=== PATIENT | female | born 1960 | race Caucasian/White ===

== ENCOUNTER 2017-02-07 20:36 | Emergency (ER) | payer OTHER ==
[~2017-02-07] VITALS: Ht 160 cm; Wt 67.0 kg
[~2017-02-07 20:36] MED LIST: CEFD250S PO; HYDR12.56 PO; SERT100 PO
[2017-02-07 21:05] VITALS: BP 155/83; PULSE 77; RESP 18; TEMP 99.1; O2SAT 98
[2017-02-07 21:16] VITALS: BP 155/83; PULSE 86; RESP 18; TEMP 98.6; O2SAT 95
--- NOTE | 2017-02-07 21:18 | PD ---
HPI Chief Complaint: Psychiatric Symptoms Time Seen by Provider: 21:17 Travel History International Travel<30 days: No Contact w/Intl Traveler<30days: No History of Present Illness HPI The patient arrives by police department as a Carter act. The patient has been reported by her mother to the police. Evidently she is drinking wine and nights , tonight 6 classes. This concerned the mother such that she brought a friend to visit the patient and together they evidently berated the patient. She became increasingly frustrated asking the mother and friend to leave however they did not. At one point the patient threatened her mother and friend and for that reason the police department was activated. At the time my examination the patient is cooperative and competent for a meaningful interview. 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 She denies any past diagnosis of psychiatric disease. She has never tried to hurt herself before. She denies any drug abuse. She has no medical complaint now. She reports she has several and good friends to call if necessary for support. Location neuropsychiatric. Severity moderate. PFSH Past Medical History Anxiety: Yes Hypertension: Yes Past Surgical History Tonsillectomy: Yes Other Surgery: Yes (BREAST IMPLANTS) Social History Alcohol Use: Yes (OCC) Tobacco Use: No Substance Use: No Allergies-Medications (Allergen,Severity, Reaction): Coded Allergies: penicillin G (Unverified Allergy, Severe, Anaphylaxis, 02/07/17) sulfamethoxazole (Unverified Allergy, Severe, Anaphylaxis, 02/07/17) trimethoprim (Unverified Allergy, Severe, Anaphylaxis, 02/07/17) Reported Meds & Prescriptions Reported Meds & Active Scripts Active Omnicef 250/5 (Cefdinir) Judith 6 Ml PO BID 10 Days Reported Zoloft (Sertraline HCl) 100 Mg Tab 100 Mg PO DAILY Hctz (Hydrochlorothiazide) 12.5 Mg Cap 12.5 Mg PO DAILY Review of Systems Except as stated in HPI: all other systems reviewed are Neg Physical Exam Narrative GENERAL:-year-old female pleasant well-nourished well-developed mildly anxious SKIN: Focused skin assessment warm/dry. HEAD: Atraumatic. Normocephalic. EYES: Pupils equal and round. No scleral icterus. No injection or drainage. ENT: No nasal bleeding or discharge. Mucous membranes pink and moist. NECK: Trachea midline. No JVD. CARDIOVASCULAR: Regular rate and rhythm. No murmur appreciated. RESPIRATORY: No accessory muscle use. Clear to auscultation. Breath sounds equal bilaterally. GASTROINTESTINAL: Abdomen soft, non-tender, nondistended. Hepatic and splenic margins not palpable. MUSCULOSKELETAL: No obvious deformities. No clubbing. No cyanosis. No edema. NEUROLOGICAL: Awake and alert. No obvious cranial nerve deficits. Motor grossly within normal limits. Normal speech. PSYCHIATRIC: Denies suicidal or homicidal ideation. Mildly anxious although appropriate. Data Data Last Documented VS Vital Signs Date Time Temp Pulse Resp B/P Pulse Ox O2 Delivery O2 Flow Rate FiO2 02/07/17 21:16 98.6 86 18 155/83 95 02/07/17 21:05 Room Air Vital signs reviewed MDM Medical Decision Making Medical Screen Exam Complete: Yes Emergency Medical Condition: Yes Medical Record Reviewed: Yes Differential Diagnosis Altered mental status/psychosis due to infection/environmental exposure/ metabolic abnormality, polypharmacy, alcohol abuse/intoxication, illicit or prescribed drug abuse, malingering/secondary gain, non-organic psychiatric disease Narrative Course I will lift this Carter Act as it is inappropriate and unnecessary. The patient is not a harm to herself or others she has a good social support network Diagnosis Primary Impression: Alcohol intoxication Qualified Code: F10.920 - Alcoholic intoxication without complication Referrals: Primary Care Physician 2 days Additional Instructions: You have a choice when it comes to health care, and we are glad that you chose [facility]. Hopefully, we have met your expectations on today's visit. You are welcome to return to [facility] at any time, as we are committed to meeting the health care needs of our community. Med/Other Pt SpecificInfo: No Change to Meds Disposition: 01 DISCHARGE HOME Condition: Ward Hernandez MD Feb 07, 2017 21:18
[2017-02-08] MEDS ORDERED: RANI150T PO (16:09)
[2017-02-08] MEDS ORDERED: XANA2TAB2 PO (16:09)
[2017-02-08] MEDS ORDERED: ZOLO100T PO (16:09)
== END 2017-02-07 22:21 | disposition home or self-care (01) ==
LOC: NEPD 20:36
DX: F10.120 Alcohol abuse with intoxication, uncomplicated (principal); I10 Essential (primary) hypertension
CPT/HCPCS: 99283

== ENCOUNTER 2017-02-08 15:16 | Inpatient (IN) | payer OTHER ==
[~2017-02-08] VITALS: Ht 160 cm; Wt 63.5 kg
--- NOTE | 2017-02-08 15:40 | PD ---
HPI Chief Complaint: overdose Time Seen by Provider: 15:37 Travel History International Travel<30 days: No Contact w/Intl Traveler<30days: No History of Present Illness HPI 56-year-old female presents to the emergency department via EMS for evaluation of suicide attempt, overdose. The patient apparently took 7 pills of 0.5 mg Xanax at 7 PM last night. She also had multiple vodka drinks. The patient does not remember coming to the emergency department. She does remember taking the pills and trying to kill herself. When asked why, she states "too many things". She apparently left her sinus suicide letter. The patient reports history of hypertension, depression. The patient denies any medical complaints at this time. She reports feeling sleepy. She answers all my questions appropriately. PFSH Past Medical History Anxiety: Yes GERD: Yes Hypertension: Yes Past Surgical History Tonsillectomy: Yes Other Surgery: Yes (BREAST IMPLANTS) Social History Alcohol Use: Yes (OCC) Tobacco Use: No Substance Use: No Allergies-Medications (Allergen,Severity, Reaction): Coded Allergies: penicillin G (Unverified Allergy, Severe, Anaphylaxis, 02/08/17) sulfamethoxazole (Unverified Allergy, Severe, Anaphylaxis, 02/08/17) trimethoprim (Unverified Allergy, Severe, Anaphylaxis, 02/08/17) Reported Meds & Prescriptions Reported Meds & Active Scripts Active Reported Ranitidine (Ranitidine HCl) 150 Mg Tab 150 Mg PO DAILY Xanax (Alprazolam) 2 Mg Tab 2 Mg PO Q8H PRN Zoloft (Sertraline HCl) 100 Mg Tab 100 Mg PO DAILY Review of Systems Except as stated in HPI: all other systems reviewed are Neg Physical Exam Narrative GENERAL: Well-nourished, well-developed female patient. SKIN: Focused skin assessment warm/dry. HEAD: Normocephalic. Atraumatic. EYES: No scleral icterus. No injection or drainage. NECK: Supple, trachea midline. No JVD or lymphadenopathy. CARDIOVASCULAR: Regular rate and rhythm without murmurs, gallops, or rubs. RESPIRATORY: Breath sounds equal bilaterally. No accessory muscle use. Lungs sounds are clear to auscultation GASTROINTESTINAL: Abdomen soft, non-tender, nondistended. MUSCULOSKELETAL: No cyanosis, or edema. PSYCHIATRIC: No delusional thought processes. No hallucinations. Data Data Last Documented VS Vital Signs Date Time Temp Pulse Resp B/P Pulse Ox O2 Delivery O2 Flow Rate FiO2 02/08/17 20:02 98.3 71 16 101/63 97 Room Air 02/08/17 18:00 3 Orders Complete Blood Count With Diff (02/08/17 15:35) Comprehensive Metabolic Panel (02/08/17 15:35) Electrocardiogram (02/08/17 15:35) Psych Screen (02/08/17 15:35) Drug Screen, Random Urine (02/08/17 15:35) Alcohol (Ethanol) (02/08/17 15:35) Salicylates (Aspirin) (02/08/17 15:35) Tylenol (Acetaminophen) (02/08/17 15:35) Urinalysis - C+S If Indicated (02/08/17 15:36) Labs Laboratory Tests Test 02/08/17 02/08/17 16:20 16:40 White Blood Count 4.7 TH/MM3 Red Blood Count 3.91 MIL/MM3 Hemoglobin 12.9 GM/DL Hematocrit 37.7 % Mean Corpuscular Volume 96.4 FL Mean Corpuscular Hemoglobin 33.1 PG Mean Corpuscular Hemoglobin 34.3 % Concent Red Cell Distribution Width 12.7 % Platelet Count 186 TH/MM3 Mean Platelet Volume 6.7 FL Neutrophils (%) (Auto) 45.3 % Lymphocytes (%) (Auto) 47.8 % Monocytes (%) (Auto) 5.4 % Eosinophils (%) (Auto) 0.9 % Basophils (%) (Auto) 0.6 % Neutrophils # (Auto) 2.1 TH/MM3 Lymphocytes # (Auto) 2.2 TH/MM3 Monocytes # (Auto) 0.3 TH/MM3 Eosinophils # (Auto) 0.0 TH/MM3 Basophils # (Auto) 0.0 TH/MM3 CBC Comment DIFF FINAL Differential Comment Sodium Level 143 MEQ/L Potassium Level 3.8 MEQ/L Chloride Level 105 MEQ/L Carbon Dioxide Level 26.4 MEQ/L Anion Gap 12 MEQ/L Blood Urea Nitrogen 8 MG/DL Creatinine 0.62 MG/DL Estimat Glomerular Filtration 99 ML/MIN Rate Random Glucose 75 MG/DL Calcium Level 8.1 MG/DL Total Bilirubin 0.5 MG/DL Aspartate Amino Transf 54 U/L (AST/SGOT) Alanine Aminotransferase 36 U/L (ALT/SGPT) Alkaline Phosphatase 46 U/L Total Protein 7.2 GM/DL Albumin 3.8 GM/DL Salicylates Level LESS THAN 1.7 MG/DL Acetaminophen Level LESS THAN 2.0 MCG/ML Ethyl Alcohol Level 352 MG/DL Urine Color LIGHT-YELLOW Urine Turbidity CLEAR Urine pH 5.5 Urine Specific [place] 1.010 Urine Protein 100 mg/dL Urine Glucose (UA) NEG mg/dL Urine Ketones NEG mg/dL Urine Occult Blood NEG Urine Nitrite NEG Urine Bilirubin NEG Urine Urobilinogen LESS THAN 2.0 MG/DL Urine Leukocyte Esterase LARGE Urine RBC 1 /hpf Urine WBC 3 /hpf Urine Squamous Epithelial 2 /hpf Cells Urine Hyaline Casts 3 /lpf Urine Mucus FEW /lpf Microscopic Urinalysis Comment CULT NOT INDICATED Urine Opiates Screen NEG Urine Barbiturates Screen NEG Urine Amphetamines Screen NEG Urine Benzodiazepines Screen POS Urine Cocaine Screen NEG Urine Cannabinoids Screen NEG MDM Medical Decision Making Medical Screen Exam Complete: Yes Emergency Medical Condition: Yes Medical Record Reviewed: Yes Differential Diagnosis Suicidal ideation versus depression versus alcohol intoxication versus substance abuse versus bipolar disorder Narrative Course 56-year-old female presents to the emergency department via EMS for psychiatric evaluation. She states that she attempted to kill herself by overdosing on Xanax and drinking vodka. Patient is easily awakened on my exam. She answers all questions appropriate. She does not remember coming to the hospital. EKG, CBC, CMP, UA, urine drug screen, alcohol level, salicylate level, acetaminophen level are ordered and pending. Workup is initiated in the ambulance. Patient will be transferred to medical pod when bed becomes available. Lilian Rodriguez Feb 08, 2017 15:40
[2017-02-08 16:00] VITALS: BP 109/65; PULSE 75; PULSE 78; RESP 18; TEMP 97.4; O2SAT 92; O2SAT 99
[2017-02-08] MEDS ORDERED: XANA2TAB2 PO (16:09)
[2017-02-08] MEDS ORDERED: ZOLO100T PO (16:09)
[2017-02-08] MEDS ORDERED: RANI150T PO (16:09)
[2017-02-08 17:00] VITALS: BP 104/63; PULSE 78; RESP 14; O2SAT 97
[2017-02-08 17:22] LABS: ANION GAP 12 MEQ/L (5-15); AST (GOT) 54 U/L (15-37); BICARBONATE 26.4 MEQ/L (21.0-32.0); BLOOD UREA NITROGEN 8 MG/DL (7-18); CHLORIDE 105 MEQ/L (98-107); GLOMERULAR FILTRATION RATE 99 ML/MIN (>89); POTASSIUM 3.8 MEQ/L (3.5-5.1); SODIUM (NA) 143 MEQ/L (136-145)
[2017-02-08 17:22] LABS: BLOOD, URINE NEG (NEG); COMMENT (UR) CULT NOT INDICATED; CULTURE IF INDICATED CULT NOT INDICATED; GLUCOSE,URINE NEG (NEG); HYALINE CAST, URINE 3 /lpf (RARE); KETONE, URINE NEG (NEG); MUCUS URINE FEW /lpf (OCC); NITRITE,URINE NEG (NEG); PH, URINE 5.5 (5.0-8.5); SQUAMOUS EPITHELIAL CELL URINE 2 /hpf (0-5); URINE COLOR LIGHT-YELLOW (YELLW/STRAW)
[2017-02-08 17:24] LABS: ALKALINE PHOSPHATASE 46 U/L (45-117); ALT (GPT) 36 U/L (10-53); TOTAL BILIRUBIN ADULT 0.5 MG/DL (0.2-1.0)
[2017-02-08 17:29] LABS: AUTOMATED NEUTROPHIL # 2.1 TH/MM3 (1.8-7.7); BASOPHIL % 0.6 % (0.0-2.0); EOSINOPHIL % 0.9 % (0.0-4.0); HEMATOCRIT 37.7 % (35.0-46.0); HEMO FLAGS DIFF FINAL; LYMPH % 47.8 % (9.0-44.0); LYMPHOCYTE # 2.2 TH/MM3 (1.0-4.8); MEAN CELL VOLUME 96.4 FL (80.0-100.0); MEAN CORPUSCULAR HEMOGLOBIN 33.1 PG (27.0-34.0); MEAN CORPUSCULAR HGB CONC 34.3 % (32.0-36.0); MONO % 5.4 % (0.0-8.0); NEUT % 45.3 % (16.0-70.0); PLATELET COUNT 186 TH/MM3 (150-450); RED BLOOD COUNT 3.91 MIL/MM3 (4.00-5.30); RED CELL DISTRIBUTION WIDTH 12.7 % (11.6-17.2); WHITE BLOOD COUNT 4.7 TH/MM3 (4.0-11.0)
[2017-02-08 17:39] LABS: ACETAMINOPHEN LESS THAN 2.0 MCG/ML (10.0-30.0)
[2017-02-08 18:00] VITALS: BP 99/60; PULSE 88; RESP 14; O2SAT 99
--- NOTE | 2017-02-08 18:00 | PD ---
Data Data Last Documented VS Vital Signs Date Time Temp Pulse Resp B/P Pulse Ox O2 Delivery O2 Flow Rate FiO2 02/08/17 18:00 88 14 99/60 99 Nasal Cannula 3 02/08/17 16:00 97.4 Orders Complete Blood Count With Diff (02/08/17 15:35) Comprehensive Metabolic Panel (02/08/17 15:35) Electrocardiogram (02/08/17 15:35) Psych Screen (02/08/17 15:35) Drug Screen, Random Urine (02/08/17 15:35) Alcohol (Ethanol) (02/08/17 15:35) Salicylates (Aspirin) (02/08/17 15:35) Tylenol (Acetaminophen) (02/08/17 15:35) Urinalysis - C+S If Indicated (02/08/17 15:36) Labs Laboratory Tests Test 02/08/17 02/08/17 16:20 16:40 White Blood Count 4.7 TH/MM3 Red Blood Count 3.91 MIL/MM3 Hemoglobin 12.9 GM/DL Hematocrit 37.7 % Mean Corpuscular Volume 96.4 FL Mean Corpuscular Hemoglobin 33.1 PG Mean Corpuscular Hemoglobin 34.3 % Concent Red Cell Distribution Width 12.7 % Platelet Count 186 TH/MM3 Mean Platelet Volume 6.7 FL Neutrophils (%) (Auto) 45.3 % Lymphocytes (%) (Auto) 47.8 % Monocytes (%) (Auto) 5.4 % Eosinophils (%) (Auto) 0.9 % Basophils (%) (Auto) 0.6 % Neutrophils # (Auto) 2.1 TH/MM3 Lymphocytes # (Auto) 2.2 TH/MM3 Monocytes # (Auto) 0.3 TH/MM3 Eosinophils # (Auto) 0.0 TH/MM3 Basophils # (Auto) 0.0 TH/MM3 CBC Comment DIFF FINAL Differential Comment Sodium Level 143 MEQ/L Potassium Level 3.8 MEQ/L Chloride Level 105 MEQ/L Carbon Dioxide Level 26.4 MEQ/L Anion Gap 12 MEQ/L Blood Urea Nitrogen 8 MG/DL Creatinine 0.62 MG/DL Estimat Glomerular Filtration 99 ML/MIN Rate Random Glucose 75 MG/DL Calcium Level 8.1 MG/DL Total Bilirubin 0.5 MG/DL Aspartate Amino Transf 54 U/L (AST/SGOT) Alanine Aminotransferase 36 U/L (ALT/SGPT) Alkaline Phosphatase 46 U/L Total Protein 7.2 GM/DL Albumin 3.8 GM/DL Salicylates Level LESS THAN 1.7 MG/DL Acetaminophen Level LESS THAN 2.0 MCG/ML Ethyl Alcohol Level 352 MG/DL Urine Color LIGHT-YELLOW Urine Turbidity CLEAR Urine pH 5.5 Urine Specific [place] 1.010 Urine Protein 100 mg/dL Urine Glucose (UA) NEG mg/dL Urine Ketones NEG mg/dL Urine Occult Blood NEG Urine Nitrite NEG Urine Bilirubin NEG Urine Urobilinogen LESS THAN 2.0 MG/DL Urine Leukocyte Esterase LARGE Urine RBC 1 /hpf Urine WBC 3 /hpf Urine Squamous Epithelial 2 /hpf Cells Urine Hyaline Casts 3 /lpf Urine Mucus FEW /lpf Microscopic Urinalysis Comment CULT NOT INDICATED Urine Opiates Screen NEG Urine Barbiturates Screen NEG Urine Amphetamines Screen NEG Urine Benzodiazepines Screen POS Urine Cocaine Screen NEG Urine Cannabinoids Screen NEG MDM Supervised Visit with DAI: Yes Interpretation(s) EKG shows sinus rhythm normal axis normal R-wave progression. No concerning ST segment changes. Intervals within normal limits. This an normal EKG Narrative Course Patient care assumed from Lilian Rodriguez 1700. His 56-year-old female presents emergency Department on Carter act. She admits taking approximately 3-1 /2 mg Xanax last night as well as alcohol. She is on Carter act by law enforcement. She is remained hemodynamically stable in the emergency department , appears well in no obvious distress. No physical complaints warm to further workup at this time. She is medically cleared for psychiatric evaluation and disposition. Diagnosis Primary Impression: Medical clearance for psychiatric admission Condition: Stable Barber Miller MD Feb 08, 2017 18:00
[2017-02-08 18:01] LABS: ALCOHOL 352 MG/DL (0-5)
[2017-02-08 20:02] VITALS: BP 101/63; PULSE 71; RESP 16; TEMP 98.3; O2SAT 97
[2017-02-09 02:20] VITALS: BP 122/58; PULSE 112; RESP 19; O2SAT 97
[2017-02-09 06:25] VITALS: BP 139/81; PULSE 92; RESP 18; O2SAT 96
--- NOTE | 2017-02-09 09:13 | EKG ---
Date Performed: 02/08/2017 Time Performed: 16:04:24 PTAGE: 56 years EKG: Sinus rhythm NORMAL ECG Compared to prior tracing no significant change PREVIOUS TRACING : 04/05/1999 08.33 DOCTOR: Curtis Hernandez Interpretating Date/Time 02/09/2017 09:12:34
[2017-02-09 10:00] VITALS: BP 132/71; PULSE 98; RESP 18
[2017-02-09 13:36] VITALS: BP 148/88; PULSE 105; RESP 20; O2SAT 99
[2017-02-09] MEDS ORDERED: LORazepam 2 MG/ML VIAL IV PUSH PRN ×4 (15:00)
[2017-02-09] MEDS ORDERED: LORazepam 2 MG TAB PO PRN (15:00)
[2017-02-09] MEDS ORDERED: FLUMAZENIL 0.5 MG/5 ML VIAL IV PUSH PRN (15:00)
--- NOTE | 2017-02-09 16:38 | PD ---
History of Present Illness Chief Complaint: Alcohol/Drug Intoxication Time Seen by Provider: 10:00 Travel History International Travel<30 Days: No Contact w/Intl Traveler<30days: No Known affected area: No Legal Status Legal Status: Carter Act History of Present Illness: This is a 56-year-old female who presents under a Carter act for overdosing on Xanax while intoxicated and leaving a suicide note. This is the business rules developer act of this patient in the last several days. The first Carter act was lifted by the main emergency department physician. At this time, the patient admits to consuming alcohol on a daily basis. She was noted to have an alcohol blood level of almost 360. She admits to this suicide attempt and overdose but is now trying to minimize it, indicating she made a mistake and won't try again. However, she also states she has multiple stressors in her life, most of which are related to her family members. 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 She was informed by this physician that I would not clear her to work. Her primary concern then became losing her job. Her insight and judgment appear to be significantly impaired. This physician spoke with the head of case management, the hogshead filler, the ANESTHESIOLOGIST of this institution and the nurse caring for the patient. All members of the [place] community are quite concerned about the safety and well-being of this patient as well as her inability to perform her duties as a nurse. Patient once again appears to have minimal insight about her suicidality and her alcohol consumption. This physician feels she is at great risk of suicide and feels strongly she needs to be hospitalized with dual diagnosis problems. Symptoms of depression include depressed mood, suicide attempt, anxiety, low self-esteem, diminished energy, problems with concentration and memory, sleep and appetite disturbance, tearfulness, etc. These symptoms have been going on for several months at least. PFSH Past Medical History Anxiety: Yes GERD: Yes Hypertension: Yes Tetanus Vaccination: > 5 Years Influenza Vaccination: Yes (2015) ?: Not : 5 Para: 2 Miscarriage: 3 : 0 Past Surgical History Section: Yes ( X 2) Gynecologic Surgery: Yes () Tonsillectomy: Yes Other Surgery: Yes (BREAST IMPLANTS) Psychiatric History Psychiatric History Hx Psychiatric Treatment: Patient not currently undergoing any psychiatric treatment but states she has a history of depression and anxiety. History of Inpatient Treatment: No Guns or firearms in home: No Social History Hx Alcohol Use: Yes (APPROX 3 DRINKS DAILY) Hx Tobacco Use: No Hx Substance Use: Yes Substance Use Type: Alcohol Allergies-Medications (Allergen,Severity, Reaction): Coded Allergies: penicillin G (Unverified Allergy, Severe, Anaphylaxis, 02/08/17) sulfamethoxazole (Unverified Allergy, Severe, Anaphylaxis, 02/08/17) trimethoprim (Unverified Allergy, Severe, Anaphylaxis, 02/08/17) Reported Meds & Prescriptions Reported Meds & Active Scripts Active Reported Ranitidine (Ranitidine HCl) 150 Mg Tab 150 Mg PO DAILY Xanax (Alprazolam) 2 Mg Tab 2 Mg PO Q8H PRN Zoloft (Sertraline HCl) 100 Mg Tab 100 Mg PO DAILY Review of Systems Except as stated in HPI: all other systems reviewed are Neg Exam Alert: Yes [place]: Person, Place, Date, Situation Mood: Depressed Affect: Flat Speech: Clear Eye Contact: Normal Memory Intact: Immediate, Recent, Remote Suicidal: Intent, Plan, Ideation Insight/Judgement Impaired MDM Medical Decision Making Medical Record Reviewed: Yes Assessment/Plan Patient is at very high risk for self-harm and has multiple risk factors for committing suicide. However, due to her dual diagnosis problem of depression and alcohol abuse, this physician feels she needs to be in a treatment program that will adequately address both problems. Additionally, it would be helpful to the patient if her treatment could remain anonymous with regard to staff at this institution. We are therefore looking at options of transferring her to [facility] in [place]. This would have to be under secure transport as the patient will remain under a Carter act. Orders Diet Regular Basic (02/09/17 Breakfast) Diet Regular Basic (02/09/17 Lunch) Diet Regular Basic (02/09/17 Dinner) Lorazepam (Ativan) (02/09/17 15:00) Lorazepam Inj (Ativan Inj) (02/09/17 15:00) Lorazepam (Ativan) (02/09/17 15:00) Lorazepam Inj (Ativan Inj) (02/09/17 15:00) Lorazepam Inj (Ativan Inj) (02/09/17 15:00) Lorazepam Inj (Ativan Inj) (02/09/17 15:00) Flumazenil Inj (Romazicon Inj) (02/09/17 15:00) Results Vital Signs Date Time Temp Pulse Resp B/P Pulse Ox O2 Delivery O2 Flow Rate FiO2 02/09/17 13:36 105 20 148/88 99 Room Air 02/09/17 10:00 98 18 132/71 Room Air 02/09/17 06:25 92 18 139/81 96 Room Air 02/09/17 02:20 112 19 122/58 97 Room Air 02/08/17 20:02 98.3 71 16 101/63 97 Room Air 02/08/17 18:00 88 14 99/60 99 Nasal Cannula 3 02/08/17 17:00 78 14 104/63 97 Nasal Cannula 2 Laboratory Tests Test 02/08/17 16:40 Urine Color LIGHT-YELLOW Urine Turbidity CLEAR Urine pH 5.5 Urine Specific [place] 1.010 Urine Protein 100 Urine Glucose (UA) NEG Urine Ketones NEG Urine Occult Blood NEG Urine Nitrite NEG Urine Bilirubin NEG Urine Urobilinogen LESS THAN 2.0 Urine Leukocyte Esterase LARGE Urine RBC 1 Urine WBC 3 Urine Squamous Epithelial 2 Cells Urine Hyaline Casts 3 Urine Mucus FEW Microscopic Urinalysis Comment CULT NOT INDICATED Urine Opiates Screen NEG Urine Barbiturates Screen NEG Urine Amphetamines Screen NEG Urine Benzodiazepines Screen POS Urine Cocaine Screen NEG Urine Cannabinoids Screen NEG Diagnosis Primary Impression: Adjustment disorder with depressed mood Additional Impression: Alcohol abuse Condition: Stable Problem Qualifiers Roberto Mantilla MD Feb 09, 2017 16:38
[2017-02-09 17:37] VITALS: BP 122/66; PULSE 94; RESP 18; O2SAT 96
[2017-02-09] MEDS: LORazepam 1 MG TAB PO PRN (17:46)
[2017-02-09 19:45] VITALS: BP 172/91; PULSE 81; RESP 18; TEMP 98; O2SAT 100
[2017-02-09] MEDS ORDERED: ACETAMINOPHEN 325 MG TAB PO PRN (20:00)
[2017-02-09] MEDS ORDERED: LORazepam 2 MG/ML VIAL IM PRN (20:00)
[2017-02-09] MEDS ORDERED: MAGNESIUM HYDROXIDE SUSP 30 ML CUP PO PRN (20:00)
[2017-02-09] MEDS ORDERED: ALUMINUM/MAGNESIUM/SIMETH 30 ML CUP PO PRN (20:00)
[2017-02-09] MEDS ORDERED: LORazepam 1 MG TAB PO PRN (20:00)
[2017-02-09] MEDS ORDERED: diphenhydrAMINE HCL 50 MG/ML VIAL - HS PRN IM (20:00)
[2017-02-09] MEDS ORDERED: hydrOXYzine HCL 50 MG TAB PO PRN (20:00)
[2017-02-09] MEDS: REMOVE OLD NICOTINE PATCH T-DERMAL SCH (21:00)
[2017-02-10 05:13] VITALS: BP 130/83; PULSE 74; RESP 16; TEMP 98.1; O2SAT 100
[2017-02-10] MEDS: NICOTINE 21 MG/24 HR PATCH T-DERMAL SCH (08:55)
[2017-02-10 12:40] LABS: HDL CHOLESTEROL 120.8 MG/DL (40.0-60.0); LDL CHOLESTEROL 132 MG/DL (0-99)
[2017-02-10 14:18] LABS: HEMOGLOBIN A1a 1.4 %; HEMOGLOBIN A1b 0.7 %; HEMOGLOBIN Ao 84.5 %; HEMOGLOBIN F 1.7 %; HEMOGLOBIN LA1C 2.2 %; HEMOGLOBIN P3 3.2 %
--- NOTE | 2017-02-10 16:08 | HHI.HP ---
Provisional Diagnosis Admission Date Feb 09, 2017 at 18:36 [place] I. Major depressive disorder, single episode, severe without psychotic features; alcohol use disorder [place] II. deferred [place] III. malignant melanoma status post surgery in 2016, hypertension and GERD [place] IV. job stress, financial stress, limited social support, chemical dependence [place] V. 35 Certification of Person's Competence To Provide Express and Informed Consent I have personally examined Lynnette Waller , a person being served at [facility] on, Feb 10, 2017 16:03. Express and informed consent means consent voluntarily given in writing, by a competent person, after sufficient explanation and disclosure of the subject matter involved to enable the person to make a knowing and willful decision without any element of force, fraud, deceit, duress, or other form of constraint or coercion. This person is 18 years of age or older, is not now known to be incompetent to consent to treatment with a guardian advocate, and does not have a health care surrogate or proxy currently making medical treatment decisions. I have found this person to be one of the following: [x] Competent to provide express and informed consent, as defined above, for voluntary admission to this facility and is competent to provide express and informed consent for treatment. He/she has the consistent capacity to make well reasoned, willful, and knowing decisions concerning his or her medical or mental health treatment. The person fully and consistently understands the purpose of the admission for examination/placement and is fully capable of personally exercising all rights assured under [place] [] Incompetent to provide express and informed consent to voluntary admission, and this is incompetent to provide express and informed consent to treatment. The person must be transferred to involuntary status and a petition for a guardian advocate filed with the Circuit Court. [] Refusing to provide express and informed consent to voluntary admission but is competent to provide express and informed consent for treatment. The person must be discharged or transferred to involuntary status. Form shall be completed within 24 hours of a person's arrival at the receiving facility and filed in the clinical record of each person: 1. Admitted on a voluntary basis 2. Permitted to provide express and informed consent to his/her own treatment 3. Allowed to transfer from involuntary to voluntary status 4. Prior to permitting a person to consent to his or her own treatment after having been previously found incompetent to consent to treatment. History of Present Illness Capacity: Has Capacity HPI Patient is a 56 y/o woman, with 2 adult children, unemployed , previous psychiatric diagnoses of anxiety, no previous psychiatric admissions , no previous suicide attempts or self-injurious behavior, past medical history recent malignant melanoma status post surgery in 2016, hypertension and GERD was brought to the ED under Carter act after overdose on Xanax and acute alcohol intoxication (BAL: 350) having left a suicide note which patients friend called 91 and was brought here by EMS. Patient found on the inpatient psychiatry unit able to cooperative interview today. Patient states that throughout the years she has since having difficulty with her work having lost 2 jobs this year, and recent return back to work 2 months ago was given night shifts. Patient mentions that on the days that she was not working she would watch TV and started drinking vodka and has been drinking increasingly since 4 months ago. Patient reports that her days off she would have 06-7 glasses of wine but recently also started drinking vodka. Patient reports that this week and there was a change in her work area which she was working on a different medical floor and felt overwhelmed and ended up leaving early that day. Patient reports that date after went home started drinking felt upset and crying episodes and called her mother and friend to come over which is a time will was put under Carter act prior to this admission and discharge by ER physicians. Prior to coming to this admission patient doesnt recall events that led up to her hospitalization only that she was waiting for her daughter come visit from out of town and began to drink increasingly. She also recalls having drank 3 Xanax while intoxicated and less instructions to her children and her home in case something were to happen to me along with money set aside for suicide note. Patient reports that for the past 2 months she has been having decreased sleep and energy concentration, decreased pleasure in hobbies, to be more isolative, feeling hopeless. Patient states that she has been having multiple stress and feeling overwhelmed due to financial stress, limited family support and stress at work. Currently patient reports feeling depressed, denies SI at this moment, HI, perceptual disturbances or delusions. Past psychiatric history: previous psychiatric diagnoses of anxiety disorder, denies previous psychiatric hospitalizations, denies previous suicide attempt or self-interest behavior. Patient prescribed sertraline 100 mg by mouth daily by her primary care doctor. Substance use history: denies any alcohol or any other illicit drug use. Denies previous detox or rehabilitation programs. 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 Review of Systems Except as stated in HPI: all other systems reviewed are Neg Past Psych History Violence risk - others (6 mos) low Violence risk - self (6 mos) high Substance Abuse History Drugs/Alcohol past 12 months ETOH use daily for the past 4 months or more. Past Family Social History Coded Allergies: penicillin G (Unverified Allergy, Severe, Anaphylaxis, 02/08/17) sulfamethoxazole (Unverified Allergy, Severe, Anaphylaxis, 02/08/17) trimethoprim (Unverified Allergy, Severe, Anaphylaxis, 02/08/17) Reported Medications Ranitidine 150 Mg [id number] Mg PO DAILY #30 TAB Ref 0 02/08/17 Alprazolam (Xanax)2 Mg Tab2 Mg PO Q8H PRN (ANXIETY) Ref 0 02/08/17 Sertraline (Zoloft)100 Mg [id number] Mg PO DAILY #30 TAB Ref 0 02/08/17 Current Medications Medications (Trade) Dose Ordered Sig/Marycruz Route Start Time Stop Time Status Last Admin (Ativan) 1 mg Q4H PRN PO 02/09/17 15:00 02/09/17 17:46 (Ativan Inj) 1 mg Q4H PRN IV PUSH 02/09/17 15:00 (Ativan) 2 mg Q2H PRN PO 02/09/17 15:00 (Ativan Inj) 2 mg Q2H PRN IV PUSH 02/09/17 15:00 (Ativan Inj) 2 mg Q1H PRN IV PUSH 02/09/17 15:00 (Ativan Inj) 2 mg Q15M PRN IV PUSH 02/09/17 15:00 (Romazicon Inj) 0.2 mg Q1M PRN IV PUSH 02/09/17 15:00 (Ativan) 1 mg Q6H PRN PO 02/09/17 20:00 (Ativan Inj) 1 mg Q6H PRN IM 02/09/17 20:00 (Atarax) 50 mg Q6H PRN PO 02/09/17 20:00 (Benadryl) 50 mg HS PRN PO 02/09/17 20:00 (Benadryl Inj) 50 mg HS PRN IM 02/09/17 20:00 (Tylenol) 650 mg Q4H PRN PO 02/09/17 20:00 (Milk Of Magnesia Liq) 30 ml DAILY PRN PO 02/09/17 20:00 (Mag-Al Plus Susp Liq) 30 ml Q6H PRN PO 02/09/17 20:00 (Habitrol 21 Mg Patch.24 Hr) 1 patch DAILY T-DERMAL 02/10/17 09:00 Miscellaneous Information 1 HS T-DERMAL 02/09/17 21:00 Family History denies Social History , with 2 adult children, 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 Patient's Strengths (min. 2) verbal and communicative Physical Exam Upon my examination patient not in physical distress, with no noted gross motor abnormalities, no psychomotor retardation or agitation. Vital Signs Vital Signs Date Time Temp Pulse Resp B/P Pulse Ox O2 Delivery O2 Flow Rate FiO2 02/10/17 05:13 98.1 74 16 130/83 100 02/09/17 19:45 Room Air 02/08/17 18:00 3 Mental Status Examination Appearance Appears stated age, in hospital pajamas, calm and cooperative interview. Fair hygiene and grooming, fair eye contact Speech: Unremarkable Orientation: x3 Memory: Unremarkable Thought Process: Logical, Organized Thought Content: Unremarkable Language Fluid and spontaneous Fund of Knowledge Average Hallucination Type: None Attention and Concentration: Good Suicidal Ideation: Yes Previous Suicide Attempts: No Homicidal Ideation: No Previous Homicide Attempts: No Insight: Poor Judgment: Poor Affect: Anxious Mood: Sad Motor Activity: Normal gait Assessment & Plan Problem List: (1) Major depressive disorder, single episode, severe without psychotic features ICD Code: F32.2 Assessment & Plan Estimated LOS: 5-7 days. Patient is a 56-year-old woman who carries a diagnosis of anxiety disorder, alcohol use disorder was brought into the ER after overdose with Xanax with acute alcohol intoxication and having left the suicide note which she was then brought into the ER after friend called 911. Patient with significant depressive symptoms and recent suicide attempt in the context of multiple psychosocial stressors which at this time requires inpatient psychiatric admission for stabilization. Patient agrees with voluntary admission at this time for treatment. Restart Sertraline 50mg PO daily with upward titration for depression. Monitor for medication response and ADRs. Supportive psychotherapy provided. Discharge planning in progress. Discharge Planning In progress Guanakito Covington MD Feb 10, 2017 16:07
[2017-02-10] MEDS: SERTRALINE HCL 50 MG TAB PO SCH (16:15)
[2017-02-10 17:00] VITALS: BP 134/88; PULSE 82; RESP 18; TEMP 98.3; O2SAT 100
[2017-02-10] MEDS: REMOVE OLD NICOTINE PATCH T-DERMAL SCH (19:42)
[2017-02-10] MEDS: LORazepam 1 MG TAB PO PRN (21:40)
[2017-02-11] MEDS: SERTRALINE HCL 50 MG TAB PO SCH (08:24)
[2017-02-11] MEDS: NICOTINE 21 MG/24 HR PATCH T-DERMAL SCH (08:24)
[2017-02-11] MEDS: REMOVE OLD NICOTINE PATCH T-DERMAL SCH (08:24)
[2017-02-11] MEDS: LORazepam 1 MG TAB PO PRN (16:25)
--- NOTE | 2017-02-11 17:37 | HHI.PYPN ---
Subjective Remarks Patient was seen and case discussed with nursing. Patient is irritable and demanding throughout the interview. She minimizes her suicide attempts and is perseverant on discharge. She relays multiple stressors including her recent cancer diagnosis. Her CIWA is 0 and there is no evidence of withdrawal. Patient claims she was on 100 mg of Zoloft is demanding her return to a higher dose. She is argumentative that Zoloft is only for anxiety instead of depression. Affect is blunted. Patient denies suicidal ideation intent or plan. Received 1 dose of Ativan today Objective Alert: Yes [place]: Person, Place, Date, Situation Mood: Agitated, Depressed Affect: Blunted Memory Intact: Immediate, Recent, Remote Hallucinations: Other (denies) Delusions: No Delusion Type: Other Suicidal: Intent (denies), Plan (denies), Ideation (denies) Homicidal: Ideation (denies) Insight/Judgment Fair Vitals/IOs Vital Signs Date Time Temp Pulse Resp B/P (MAP) Pulse Ox O2 Delivery O2 Flow Rate FiO2 02/10/17 17:00 98.3 82 18 134/88 (103) 100 02/09/17 19:45 Room Air 02/08/17 18:00 3 Assessment & Plan Problem List: (1) Major depressive disorder, single episode, severe without psychotic features ICD Codes: F32.2 - Major depressive disorder, single episode, severe without psychotic features Status: Acute Assessment & Plan Her Carter act is expiring and we will have patient sign voluntary. We will increase her Zoloft to 100 mg and start Wellbutrin XL 150 mg for augmentation of depression Justification for Cont. Inpt. Patient would decompensate in a less restrictive setting Bobo Poe DO Feb 11, 2017 17:37
[2017-02-11] MEDS: buPROPion HCL 150 MG SUSTAINED RELEASE TAB PO SCH (17:45)
[2017-02-11 18:06] VITALS: BP 129/67; PULSE 86; RESP 17; TEMP 98.8; O2SAT 99
[2017-02-11] MEDS: diphenhydrAMINE HCL 50 MG CAP - HS PRN PO (21:29)
[2017-02-12 05:59] VITALS: BP 109/60; PULSE 81; RESP 16; TEMP 98.6; O2SAT 98
[2017-02-12] MEDS: SERTRALINE HCL 100 MG TAB PO SCH (08:54)
[2017-02-12] MEDS: buPROPion HCL 150 MG SUSTAINED RELEASE TAB PO SCH (08:54)
[2017-02-12] MEDS: NICOTINE 21 MG/24 HR PATCH T-DERMAL SCH (08:55)
--- NOTE | 2017-02-12 14:01 | HHI.PYPN ---
Subjective Remarks Patient seen in her room with nurse Pennie and counselor Inez, chart review, patient alert oriented stockily built white female some disheveled in appearance. 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 This intent to be closer to her late 70s mother. Patient states she has been under increased stress with the move with finding a job, being treated for malignant melanoma but she says is excess full. Brachial for the stress fracture well moving. She states alcohol has been a problem for her for a number of years she acknowledges to me that she is an alcoholic. Which denies ever being in a detox facility. She also denies any legal issues related to the drinking. She does acknowledge a.m. drinking, so low drinking, blacking out after drinking, though she denies any withdrawal symptoms or withdrawal seizures. He states he drinking is voc, that has increased over the past 3-4 months. She also states she has been given a prescription for Xanax that she uses infrequently but more frequently recently. She also states she has been on Zoloft for years for "anxiety" she is vague about any other prior psychiatric contact or hospitalizations. She denies prior suicide attempts. She is doing significant minimizing and rationalization of her alcohol use. Minimizing the severity of the suicide attempt on the mixing of alcohol or benzodiazepines. She has asked for occasional when necessary Ativan homicidality of the ciwa protocol. Patient did repeatedly denies suicidality at this time or voices or visions. Does wish to be discharged today. However I feel with the history of her visiting the emergency department twice within 48 hours both times under Carter act with the same complaint. That the Carter act was lifted and she was allowed to leave after the first episode. This time I feel we need another 24-40 hours observation with just the Ciwa protocol in place. We'll further assess tomorrow for possible discharge Review of Systems Except as stated in HPI: all other systems reviewed are Neg Objective Alert: Yes [place]: Person, Place, Date, Situation Mood: Agitated, Depressed Affect: Blunted Memory Intact: Immediate, Recent, Remote Hallucinations: Other (denies) Delusions: No Delusion Type: Other Suicidal: Intent (denies), Plan (denies), Ideation (denies) Homicidal: Ideation (denies) Insight/Judgment Poor Vitals/IOs Vital Signs Date Time Temp Pulse Resp B/P (MAP) Pulse Ox O2 Delivery O2 Flow Rate FiO2 02/12/17 05:59 98.6 81 16 109/60 (76) 98 02/09/17 19:45 Room Air 02/08/17 18:00 3 Assessment & Plan Problem List: (1) Major depressive disorder, single episode, severe without psychotic features ICD Codes: F32.2 - Major depressive disorder, single episode, severe without psychotic features Status: Acute (2) Alcohol abuse with intoxication ICD Codes: F10.129 - Alcohol abuse with intoxication, unspecified Assessment & Plan Estimated LOS: days patient showing no significant signs of withdrawal or seizure activity. She also shows signs of depression irritability and entitlement. We will discontinue the when necessary Ativan. Continue to observe another 1-2 days Justification for Cont. Inpt. This time patient decompensate if placed at a lower level of care Discharge Planning To be determined Request HC Surrog/Guard Advoc?: No Jeferson Ott MD Feb 12, 2017 14:01
[2017-02-12 19:45] VITALS: BP 152/86; PULSE 72; RESP 17; TEMP 98.4; O2SAT 100
[2017-02-12] MEDS: REMOVE OLD NICOTINE PATCH T-DERMAL SCH (21:00)
[2017-02-12] MEDS: diphenhydrAMINE HCL 50 MG CAP - HS PRN PO (21:16)
[2017-02-13 05:50] VITALS: BP 117/68; PULSE 79; RESP 16; TEMP 98.3; O2SAT 97
[2017-02-13] MEDS: NICOTINE 21 MG/24 HR PATCH T-DERMAL SCH (08:57)
[2017-02-13] MEDS: buPROPion HCL 150 MG SUSTAINED RELEASE TAB PO SCH (08:57)
[2017-02-13] MEDS: SERTRALINE HCL 100 MG TAB PO SCH (08:57)
--- NOTE | 2017-02-13 14:56 | HHI.DS ---
Psychiatry Discharge Summary Inpatient Psychiatric care?: Yes Advance Directive: No Mental Health AdvanceDirective: No Health Care Proxy: No Admission Admission Date Feb 09, 2017 at 18:36 Admission Diagnosis: (1) Alcohol abuse with intoxication ICD Code: F10.129 - Alcohol abuse with intoxication, unspecified (2) Major depressive disorder, single episode, severe without psychotic features ICD Code: F32.2 - Major depressive disorder, single episode, severe without psychotic features Brief History Patient is a 56 y/o woman, with 2 adult children, unemployed , previous psychiatric diagnoses of anxiety, no previous psychiatric admissions , no previous suicide attempts or self-injurious behavior, past medical history recent malignant melanoma status post surgery in 2016, hypertension and GERD was brought to the ED under Carter act after overdose on Xanax and acute alcohol intoxication (BAL: 350) having left a suicide note which patients friend called 91 and was brought here by EMS. Patient found on the inpatient psychiatry unit able to cooperative interview today. Patient states that throughout the years she has since having difficulty with her work having lost 2 jobs this year, and recent return back to work 2 months ago was given night shifts. Patient mentions that on the days that she was not working she would watch TV and started drinking vodka and has been drinking increasingly since 4 months ago. Patient reports that her days off she would have 06-7 glasses of wine but recently also started drinking vodka. Patient reports that this week and there was a change in her work area which she was working on a different medical floor and felt overwhelmed and ended up leaving early that day. Patient reports that date after went home started drinking felt upset and crying episodes and called her mother and friend to come over which is a time will was put under Carter act prior to this admission and discharge by ER physicians. Prior to coming to this admission patient doesnt recall events that led up to her hospitalization only that she was waiting for her daughter come visit from out of town and began to drink increasingly. She also recalls having drank 3 Xanax while intoxicated and less instructions to her children and her home in case something were to happen to me along with money set aside for suicide note. Patient reports that for the past 2 months she has been having decreased sleep and energy concentration, decreased pleasure in hobbies, to be more isolative, feeling hopeless. Patient states that she has been having multiple stress and feeling overwhelmed due to financial stress, limited family support and stress at work. Currently patient reports feeling depressed, denies SI at this moment, HI, perceptual disturbances or delusions. Past psychiatric history: previous psychiatric diagnoses of anxiety disorder, denies previous psychiatric hospitalizations, denies previous suicide attempt or self-interest behavior. Patient prescribed sertraline 100 mg by mouth daily by her primary care doctor. Substance use history: denies any alcohol or any other illicit drug use. Denies previous detox or rehabilitation programs. 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 Tobacco Use In Past 30 Days: No Tobacco Past 30 Days Alcohol Use: 2-4 Times Per Month Hospital Course Patient's hospital course was uneventful. Her initial irritability did resolve as she further detoxed, seen today patient denies suicidality homicidality voices or visions. States she slept well last night. She states she has a resolve to maintain absolute abstinence. However considering her employment status with [employer]. I will refill her antidepressants. We will refer her through to the EAP further care and attention. Also refer her through to LUIS pierceremargoth through [facility] outpatient substance abuse assessment. She'll be written the prescriptions under her real name not her pseudonym under which she has been hospitalized Results Blood Pressure 117 / 68 Vital Signs Date Time Temp Pulse Resp B/P (MAP) Pulse Ox O2 Delivery O2 Flow Rate FiO2 02/13/17 05:50 98.3 79 16 117/68 (84) 97 02/09/17 19:45 Room Air Laboratory Results Test 02/10/17 11:15 Cholesterol Level 288 MG/DL (120-200) HDL Cholesterol 120.8 MG/DL (40.0-60.0) Hemoglobin A1c 5.6 % (4.3-6.0) LDL Cholesterol 132 MG/DL (0-99) Triglycerides Level 176 MG/DL (42-150) Summary of Procedures None done Pending results at discharge: No Medications # of Antipsychotic meds at D/C: 0 Approp Antipsych med options 1 - Minimum of three failed multiple trials of monotherapy. 2 - Documented plan to taper to monotherapy due to previous use of multiple meds OR cross-taper in progress at D/C. 3 - Documentation of augmentation of Clozapine. 4 - Justification other than those listed in allowable values 1-3, document here : Discharge Discharge Date: Feb 13, 2017 Discharge Diagnosis: (1) Major depressive disorder, single episode, severe without psychotic features Diagnosis: Principal ICD Code: F32.2 - Major depressive disorder, single episode, severe without psychotic features Status: Acute (2) Alcohol abuse with intoxication Diagnosis: Secondary ICD Code: F10.129 - Alcohol abuse with intoxication, unspecified Mental Status Exam at Disch Alert oriented white female. She is normoactive. Her mood is euthymic to mildly dysphoric with good range intensity of her affect. Speech rate and rhythm are within normal limits though no formal thought disorders. No auditory or visual hallucinations. No delusions. Insight and judgment is fair cognition grossly intact Pt Condition on Discharge: Stable Discharge Disposition: Discharge Home Discharge Instructions Diet Instructions: As Tolerated, No Restrictions Activities you can perform: Regular-No Restrictions Scheduled Appointment: Eirck Batista (also follow-up [facility] , also may follow-up [facility] outpatient support groups) Appointment Date: Feb 14, 2017 Appointment Time: 730 Discharge Time > 30 minutes Discharge/Advance Care Plan Health Problems: (1) Major depressive disorder, single episode, severe without psychotic features (2) Alcohol abuse with intoxication Goals to promote your health * To prevent worsening of your condition and complications * To maintain your health at the optimal level Directions to meet your goals Take your medications as prescribed Follow your dietary instruction Follow activity as directed Keep your appointments as scheduled Take your immunizations and boosters as scheduled If your symptoms worsen call your PCP, if no PCP go to Urgent Care Center or Emergency Room For 15/01 questions related to your inpatient stay or results of tests pending at discharge, please contact Dr. Jeferson Ott at Smoking is Dangerous to Your Health. Avoid second hand smoking Jeferson Ott MD Feb 13, 2017 14:56
== END 2017-02-13 15:50 | disposition home or self-care (01) | DRG 885 ==
LOC: NEDAMB 15:16 → NEDA 02-09 18:36 → H260 02-09 19:51
PROVIDERS: ADMIT Psychiatry & Neurology Psychiatry; ATTEND Psychiatry & Neurology Psychiatry
DX: F32.2 Major depressive disorder, single episode, severe without psychotic features (principal); F10.129 Alcohol abuse with intoxication, unspecified; Y90.8 Blood alcohol level of 240 mg/100 ml or more; T42.4X2A Poisoning by benzodiazepines, intentional self-harm, initial encounter; I10 Essential (primary) hypertension; Z85.820 Personal history of malignant melanoma of skin; K21.9 Gastro-esophageal reflux disease without esophagitis
CPT/HCPCS: 80053; 80061; 80307; 81001; 83036; 85025; 93005; Q0163